=== PATIENT | female | born 1950 | race Caucasian/White ===

== ENCOUNTER 2016-10-22 12:24 | Emergency (ER) | payer MEDICARE, MEDICAID ==
--- NOTE | 2016-10-30 08:11 | ER ---
ADMIT: 10/22/2016 RM/LOC: ER [facility] MR#: [id number] [address] [id number] [place] [address] [place] [address] Emergency Room Report SEX: F AGE: 66 : 1950 DATE: 10/22/2016 ADDENDUM: CHIEF COMPLAINT: Feels like pill stuck in throat. HISTORY OF PRESENT ILLNESS: This is a 66-year-old female who feels like her iron pills that she took at 6:30 this morning is still in her throat. COURSE IN THE EMERGENCY ROOM: I called Dr. Ramachandran initially. He wanted to order a barium study. Barium study was done. It does show that she was able to swallow. At this time, I am going to have her continue her omeprazole. She wanted a little something for pain, so she is receiving morphine before she leaves, and I told her to call Dr. Ramachandran's office on Tuesday for followup. CLINICAL IMPRESSION: Dysphagia, chronic. DISPOSITION: Stable at discharge. We will follow up Dr. Ramachandran on Tuesday. LUI Keller / Jeovanny Lugo MD / dwaine JOB #: [id number] CC: Jeovanny Lugo MD, Attending Physician
== END 2016-10-22 16:00 | disposition home or self-care (01) ==
LOC: ER 12:24
DX: R13.10 Dysphagia, unspecified (principal); Z85.3 Personal history of malignant neoplasm of breast; Z98.890 Other specified postprocedural states